=== PATIENT | female | born 1990 | race Native Hawaiian/Other Pacific Islander ===

== ENCOUNTER 2017-01-09 23:12 | Emergency (ER) | payer OTHER ==
[~2017-01-09] VITALS: Ht 160 cm; Wt 68.0 kg
--- NOTE | 2017-01-09 23:27 | NUR ---
PT AMBULATORY TO ER BED 1, PT STATES SHE ATE SHRIMP 3 HOURS AGO AND IS FEELING LIKE HER THROAT IS CLOSING AND SHE IS SOB. PT PLACED IN GOWN AND ON VS MONITOR. PT VSS/RESP EVEN UNLABORED/NAD NOTED/SKIN WARN AND DRY/DENIES N-V/PT AOX4. AT BEDSIDE FOR EVAL.
[2017-01-09] MEDS ORDERED: DEXAMETHASONE SOD PHOSPHATE 10 MG/ML VIAL ONE (23:43)
[2017-01-10] MEDS ORDERED: DEXAMETHASONE SOD PHOSPHATE 10 MG/ML VIAL IV ONE
[2017-01-10] MEDS ORDERED: DEXAMETHASONE SOD PHOSPHATE 4 MG/ML VIAL IM ONE
--- NOTE | 2017-01-10 00:14 | NUR ---
Patient discharged to home in stable condition. Written and verbal after care instructions given. Patient verbalizes understanding of instruction. Pt ambulatory with a steady gait.
[2017-01-10 00:17] VITALS: BP 114/66
== END 2017-01-10 00:18 | disposition home or self-care (01) ==
LOC: ER 23:14
DX: R21 Rash and other nonspecific skin eruption (principal); T78.1XXA Other adverse food reactions, not elsewhere classified, initial encounter; Z88.8 Allergy status to other drugs, medicaments and biological substances; Y92.89 Other specified places as the place of occurrence of the external cause
CPT/HCPCS: 99283; A4606; J1100; Z7610

== ENCOUNTER 2017-04-19 10:03 | Emergency (ER) | payer OTHER ==
[~2017-04-19] VITALS: Ht 160 cm; Wt 69.9 kg
--- NOTE | 2017-04-19 10:13 | NUR ---
A/OX4, PT CAME TO ER FOR A HEAVY VAG BLEEDING X 3 DAYS, PT STATES THAT SHE ALREADY HAD HER PERIOD FOR THIS MONTH AND SHE IS WORRIED BECAUSE SHE HAS A H/O ITP. ALSO, SHE COULD NOT FIND THE TAMPON SHE PUT IN YESTERDAY. NO OTHER COMPLAINTS. NO PAIN OR DISCOMFORT. VSS NAD RR EVEN AND UNLABORED. PENDING ER MD EVALUATION
--- NOTE | 2017-04-19 10:33 | NUR ---
PT ALERT ORIENTED X 4 ABLE TO WALK WITH STEADY GAIT AND UNDRESS SELF INTO HOSPITAL GOWN. CC HEAVY BLEEDING FOR SEVERAL DAYS HAS A HISTORY OF ITP. PT SEEING A RHUMATOLOGIST.
--- NOTE | 2017-04-19 10:55 | NUR ---
MD AT BEDSIDE FOR PELVIC EXAM
[2017-04-19 11:18] LABS: BASOPHILS % (AUTO) 0.4 % (0.0-2.0); EOSINOPHILS % (AUTO) 1.2 % (0.0-6.0); HEMATOCRIT 43 % (33-45); LYMPHOCYTES # (AUTO) 0.9 /CMM (0.8-4.8); LYMPHOCYTES % (AUTO) 24.1 % (20.0-44.0); MEAN CORPUSCULAR HEMOGLOBIN 26 PG (26.0-33.0); MEAN CORPUSCULAR HGB CONC 33 g/dl (31.0-36.0); MEAN CORPUSCULAR VOLUME 78 fL (82-100); MONOCYTES # (AUTO) 0.4 /CMM (0.1-1.30); MONOCYTES % (AUTO) 10.8 % (2.0-12.0); NEUTROPHILS # (AUTO) 2.5 /CMM (1.8-8.9); NEUTROPHILS % (AUTO) 63.5 % (43.0-81.0); PLATELET COUNT (AUTO) 221 /CMM (150-450); RDW COEFFICIENT OF VARIATION 13.8 (11.5-15.0); WHITE BLOOD COUNT (AUTO) 3.8 K/uL (4.3-11.0)
[2017-04-19 11:28] LABS: CALCIUM, SERUM 8.3 mg/dL (8.5-10.1); CREATININE 0.8 mg/dL (0.6-1.3); POTASSIUM 3.5 mmol/L (3.5-5.1)
[2017-04-19 12:03] VITALS: BP 124/71
--- NOTE | 2017-04-19 12:05 | NUR ---
Patient discharged to home in stable condition. Written and verbal after care instructions given. Patient verbalizes understanding of instruction.
== END 2017-04-19 12:00 | disposition home or self-care (01) ==
LOC: ER 10:04
DX: N93.8 Other specified abnormal uterine and vaginal bleeding (principal); D69.3 Immune thrombocytopenic purpura; Z88.7 Allergy status to serum and vaccine; Z91.011 Allergy to milk products
CPT/HCPCS: 36415; 80048-TC; 85025-TC; A4606; Z7610

== ENCOUNTER 2018-07-03 15:57 | Emergency (ER) | payer OTHER ==
[~2018-07-03] VITALS: Ht 161.3 cm; Wt 67.6 kg
[2018-07-03 16:21] VITALS: BP 123/76
[2018-07-03] MEDS ORDERED: ACETAMINOPHEN ES 500 MG TABLET PO ONE (16:30)
[2018-07-03] MEDS ORDERED: ACETAMINOPHEN ES 500 MG TABLET ONE (16:36)
== END 2018-07-03 18:18 | disposition home or self-care (01) ==
LOC: ER 15:57
DX: M25.561 Pain in right knee (principal); Z88.8 Allergy status to other drugs, medicaments and biological substances; X58.XXXA Exposure to other specified factors, initial encounter; Y93.72 Activity, wrestling; Y92.89 Other specified places as the place of occurrence of the external cause; Y99.8 Other external cause status
CPT/HCPCS: 73564-TC